=== PATIENT | female | born 1980 | race Caucasian/White ===

== ENCOUNTER 2017-10-28 15:14 | Emergency (ER) | payer SELFPAY ==
[~2017-10-28] VITALS: Ht 162.6 cm; Wt 80.0 kg
[~2017-10-28 15:14] MED LIST: AZIT250T3 PO; IBUP1TAB7 PO; IPRA0.03 EACH NARE
[2017-10-28 15:18] VITALS: BP 127/77; PULSE 98; RESP 16; TEMP 97.7; O2SAT 98
--- NOTE | 2017-10-28 15:32 | PD ---
HPI Chief Complaint: ENT Complaint Time Seen by Provider: 15:23 Travel History International Travel<30 days: No Contact w/Intl Traveler<30days: No Traveled to known affect area: No History of Present Illness HPI 37-year-old female presents emergency department for evaluation of ear fullness , earache, cough and congestion that is been present for approximately 4 days. Patient says that she has been waking up feeling as if her hearing is muffled and describes her pain as an ache. She denies any radiation of pain. Says she has occasional ringing in her ears. Says that when she wakes up she feels as if she hears her heartbeat but this is not present throughout the day. She denies any headache, dizziness, blurred vision. Her cough is nonproductive. She denies any neck pain. She denies history of allergies however, her workplace recommended she start taking Claritin-D. Patient states she took 2 doses and this is not reduced her symptoms. She also use ear candles and says she removed a significant amount of wax from her ear. Denies fevers or chills. She believes that may be part of her pain is related to her 'bad teeth' in her jaw however, she denies any pain here. Says she has a history of ear problems previously but does not specify what these problems are. She has not been evaluated by her primary care physician for this. she has no other complaints today. [facility] Past Medical History Diminished Hearing: No ?: Not LMP: LAST THURSDAY/TUBAL Tubal Ligation: Yes Past Surgical History Appendectomy: Yes Other Surgery: Yes (BREAST AUGMENTATION) Social History Alcohol Use: No Tobacco Use: Yes (1/2PPD) Substance Use: No Allergies-Medications (Allergen,Severity, Reaction): Coded Allergies: No Known Allergies (Verified Adverse Reaction, Unknown, 10/28/17) Reported Meds & Prescriptions Reported Meds & Active Scripts Active No Active Prescriptions or Reported Medications Review of Systems Except as stated in HPI: all other systems reviewed are Neg Physical Exam Narrative GENERAL: Well-nourished, well-developed patient. SKIN: Focused skin assessment warm/dry. HEAD: Normocephalic. EYES: No scleral icterus. No injection or drainage. NECK: Supple, trachea midline. No JVD or lymphadenopathy. CARDIOVASCULAR: Regular rate and rhythm without murmurs, gallops, or rubs. RESPIRATORY: Breath sounds equal bilaterally. No accessory muscle use. GASTROINTESTINAL: Abdomen soft, non-tender, nondistended. MUSCULOSKELETAL: No cyanosis, or edema. BACK: Nontender without obvious deformity. No CVA tenderness. Data Data Last Documented VS Vital Signs Date Time Temp Pulse Resp B/P (MAP) Pulse Ox O2 Delivery O2 Flow Rate FiO2 10/28/17 15:18 97.7 98 16 127/77 (94) 98 MDM Medical Decision Making Medical Screen Exam Complete: Yes Emergency Medical Condition: Yes Differential Diagnosis Allergic rhinitis, postnasal drip, URI Narrative Course 37-year-old female presents emergency department for evaluation of ear fullness , earache, cough and congestion that is been present for approximately 4 days. Patient says that she has been waking up feeling as if her hearing is muffled and describes her pain as an ache. She denies any radiation of pain. Says she has occasional ringing in her ears. Says that when she wakes up she feels as if she hears her heartbeat but this is not present throughout the day. She denies any headache, dizziness, blurred vision. Her cough is nonproductive. She denies any neck pain. She denies history of allergies however, her workplace recommended she start taking Claritin-D. Patient states she took 2 doses and this is not reduced her symptoms. She also use ear candles and says she removed a significant amount of wax from her ear. Denies fevers or chills. She believes that may be part of her pain is related to her 'bad teeth' in her jaw however, she denies any pain here. Says she has a history of ear problems previously but does not specify what these problems are. She has not been evaluated by her primary care physician for this. She has no other complaints today. Vital signs stable. Physical exam findings consistent with a postnasal drip likely resulting in her symptoms. Her ears demonstrate some questionable scarring, consistent with patient's history. I am able to communicate with her normally without yelling, although at a slightly elevated voice. Advised patient that she may need to take these allergy medications for an extended period of time to resolve her symptoms. Patient should follow-up with her primary care physician for further treatment evaluation. Consider follow up with an patent searcher. Diagnosis Primary Impression: Post-nasal drip Referrals: Primary Care Physician Additional Instructions: You may use a drop of honey and lemon in a cup of warm water to soothe your cough. (If greater than 1 year old) Ensure good hydration and a nutritious diet. You may take Claritin, Brook, or Zyrtec daily for your cough, congestion and ear fullness. Generic is okay. I recommend you follow-up with the primary care physician for further treatment and evaluation. Scripts No Active Prescriptions or Reported Meds Disposition: 01 DISCHARGE HOME Condition: Stable Cheli Geiger Oct 28, 2017 15:32
== END 2017-10-28 15:47 | disposition home or self-care (01) ==
LOC: PHEFT 15:14
DX: R09.82 Postnasal drip (principal); H92.09 Otalgia, unspecified ear; R05 Cough; F17.200 Nicotine dependence, unspecified, uncomplicated
CPT/HCPCS: 99282